=== PATIENT | female | born 1985 | race African-American/Black ===

== ENCOUNTER 2016-05-28 15:26 | Emergency (ER) | payer MEDICARE, OTHER ==
--- NOTE | 2016-05-28 16:34 | ED ---
General Adult HPI - General Chief complaint: Extremity Injury, Lower Stated complaint: L foot pain Time Seen by Provider: 05/28/16 16:16 Source: patient, RN notes reviewed Mode of arrival: ambulatory Limitations: no limitations - History of Present Illness Initial comments: This is a 31-year-old female presents with left foot pain 1 day. Patient states she woke up and took one step on her left foot noticed pain to the top of her left foot. Patient has also noticed some mild swelling and erythema to this area. Patient denies any injury to the foot. Patient denies any numbness/ tingling or weakness. Patient is able to ambulate. Patient denies any recent fever, chills, shortness breath, chest pain, abdominal pain, nausea/vomiting/ diarrhea, back pain, hematuria, headache, or visual changes, or any other complaints. - Related Data Home Medications Medication Instructions Recorded Confirmed Albuterol Inhaler [Ventolin 1 - 2 puff INHALATION Q6HR PRN 07/11/14 05/28/16 Inhaler] Mometasone Inhalr 220 Mcg/Puff 2 puff INHALATION BID 07/11/14 05/28/16 [Asmanex] Cetirizine HCl [Zyrtec] 10 mg PO DAILY 10/11/14 05/28/16 Hydrochlorothiazide 25 mg PO QAM 02/08/15 05/28/16 amLODIPine BES/OLMESARTAN MED 1 tab PO QAM 02/08/15 05/28/16 [Gabby 5-20 mg Tablet] Previous Rx's Medication Instructions Recorded Ibuprofen [Motrin] 600 mg PO Q6HR PRN #30 tab 10/13/14 Allergies Allergy/AdvReac Type Severity Reaction Status Date / Time cephalexin monohydrate Allergy throat Verified 05/28/16 15:39 [From Keflex] swelling codeine Allergy Rash/Hives Verified 05/28/16 15:39 morphine Allergy Rash/Hives Verified 05/28/16 15:39 Sulfa (Sulfonamide Allergy Rash/Hives Verified 05/28/16 15:39 Antibiotics) Review of Systems ROS Statement: Those systems with pertinent positive or pertinent negative responses have been documented in the HPI. ROS Other: All systems not noted in ROS Statement are negative. Past Medical History Past Medical History: Asthma, GERD/Reflux, Hypertension Additional Past Medical History / Comment(s): "stated she had blood thinners after childbirth, she doesn't recall IF she had any kind of blood clot." HX: MIGRAINES. History of Any Multi-Drug Resistant Organisms: None Reported Past Surgical History: Section, Hernia Repair, Tubal Ligation Additional Past Surgical History / Comment(s): D & C x2, c/s x 2. SEPTEMBER 2014 TUBAL LIGATION Past Anesthesia/Blood Transfusion Reactions: Postoperative Nausea & Vomiting ( PONV) Past Psychological History: Bipolar, Depression Additional Psychological History / Comment(s): Takes no meds. states ppd after both of other opregnancies but not seen dr and not on meds at t his time Smoking Status: Never smoker Past Alcohol Use History: Occasional Additional Past Alcohol Use History / Comment(s): None for 9 months Past Drug Use History: None Reported Additional Drug Use History / Comment(s): NOT CURRENTLY. USING - Past Family History Mother Family Medical History: Asthma, Hypertension Father Family Medical History: CVA/TIA, Myocardial Infarction ([place]) General Exam - General Exam Comments Initial Comments: General: The patient is awake and alert, in no distress, and does not appear acutely ill. Neck: The neck is supple, there is no tenderness or JVD. Cardiovascular: There is a regular rate and rhythm. No murmur, rub or gallop is appreciated. Respiratory: Lungs are clear to auscultation, respirations are non-labored, breath sounds are equal. No wheezes, stridor, rales, or rhonchi. Musculoskeletal: There is mild tenderness to palpation over the dorsal aspect of the left foot with mild localized swelling and erythema to this area as well. Capillary refill is normal at less than 2 seconds. Full range of motion , strength 5/5 and Sensation intact. Posterior tibial pulses 2+ bilaterally. No calf tenderness. Neurological: A&O x 3. CN II-XII intact, There are no obvious motor or sensory deficits. Coordination appears grossly intact. Speech is normal. Skin: Mild erythema to the dorsal aspect of the left foot. Skin is warm and dry and no rashes or lesions are noted. Psychiatric: Normal mood and affect. Limitations: no limitations Course Vital Signs 05/28/16 15:37 Temperature 97.9 F Pulse Rate 87 Respiratory 20 Rate Blood Pressure 164/104 O2 Sat by Pulse 97 Oximetry Medical Decision Making - Medical Decision Making This is a 31yo female who presents with left foot pain 1 day. On physical exam there is mild tenderness to palpation over the dorsal aspect of the left foot with mild localized swelling and erythema to this area as well. Capillary refill is normal at less than 2 seconds. Full range of motion, strength 5/5 and Sensation intact. Posterior tibial pulses 2+ bilaterally. Patient is able to ambulate. No calf tenderness. Patient's elevated blood pressure noted, and patient states she is already on blood pressure medication and has not taken her daily dose yet today. Patient is asymptomatic. An x-ray of the left foot was done and reviewed showing: No fracture or dislocation. Osteoarthritic changes. Report read by Dr. Ely Discussed rest, ice, elevate and use Phillip bandage for compression. Patient was given Phillip bandages EC today. Discussed return parameters. All questions were answered. Discussed [id number] Tylenol and Motrin as needed for any pain. Discussed that patient should follow up with PCP in one to 2 days or return to the EC for any worsening symptoms or for any further concerns. Patient was receptive to this plan and patient will be discharged home. Disposition Clinical Impression: Left foot pain Disposition: HOME SELF-CARE Condition: Good Instructions: Foot Sprain (ED) Additional Instructions: Please rest, ice, elevate and use Phillip bandage for compression. Please use over- the-counter Tylenol or Motrin dosing of any pain. Please follow-up with family doctor in the next 2 days of symptoms have not improved. Please return to emergency room if the symptoms increase or worsen or for any other concerns. Referrals: Lashell Ron MD [Primary Care Provider] - 1-2 days Time of Disposition: 16:51
--- NOTE | 2016-05-28 16:48 | XR ---
Left foot HISTORY: Pain and erythema, swelling 3 views of the left foot No comparisons Bone mineralization, joint spaces and alignment are maintained. Some spurring present at the intertar matthew joints, tarsometatarsal joints. IMPRESSION: No fracture or dislocation. Osteoarthritic changes.
[2016-05-28 17:11] VITALS: BP 151/110; PULSE 81; RESP 16; TEMP 98
== END 2016-05-28 17:00 | disposition home or self-care (01) ==
LOC: EC 15:26
DX: M79.672 Pain in left foot (principal); I10 Essential (primary) hypertension; J45.909 Unspecified asthma, uncomplicated; Z79.899 Other long term (current) drug therapy; Z88.1 Allergy status to other antibiotic agents; Z88.5 Allergy status to narcotic agent; Z88.2 Allergy status to sulfonamides; Z79.51 Long term (current) use of inhaled steroids
CPT/HCPCS: 99283

== ENCOUNTER 2016-08-16 19:43 | Emergency (ER) | payer MEDICARE, OTHER ==
[2016-08-16 21:00] VITALS: RESP 18
[2016-08-16] MEDS ORDERED: KETOROLAC 60 MG/2 ML VIAL IM STA (21:59)
[2016-08-16] MEDS ORDERED: PROCHLORPERAZINE 10 MG TAB PO STA (21:59)
[2016-08-16] MEDS ORDERED: Acetaminophen-Codeine 300-30mg TAB PO STA (21:59)
[2016-08-16] MEDS ORDERED: diphenhydrAMINE 50 MG CAP PO STA (21:59)
[2016-08-16] MEDS ORDERED: cloNIDine HCL 0.1 MG TAB PO STA (22:01)
--- NOTE | 2016-08-16 22:02 | ED ---
General Adult HPI - General Chief complaint: Headache Stated complaint: headache,high BP Time Seen by Provider: 08/16/16 21:45 Source: patient, RN notes reviewed, old records reviewed Mode of arrival: ambulatory - History of Present Illness Initial comments: This is a 31-year-old female here for evaluation of headache. Patient history of migraines or chronic migraines. Patient recently with TMJ and blood pressure issues. Patient did see ER visit yesterday for TMJ, was prescribed tramadol that is helping. But migraine since developed. No neurological deficit no fevers no trauma. Patient's been taking [id number] medications as prescribed for her migraines with no help - Related Data Home Medications Medication Instructions Recorded Confirmed Albuterol Inhaler [Ventolin 1 - 2 puff INHALATION RT-Q6H PRN 07/11/14 08/16/16 Inhaler] Mometasone Inhalr 220 Mcg/Puff 2 puff INHALATION RT-BID PRN 07/11/14 08/16/16 [Asmanex] Cetirizine HCl [Zyrtec] 10 mg PO DAILY PRN 10/11/14 08/16/16 Labetalol [Trandate] 100 mg PO BID 08/16/16 08/16/16 traMADol HCL [Ultram] 50 mg PO Q6HR PRN 08/16/16 08/16/16 Previous Rx's Medication Instructions Recorded Ibuprofen [Motrin] 600 mg PO Q6HR PRN #30 tab 10/13/14 Allergies Allergy/AdvReac Type Severity Reaction Status Date / Time cephalexin monohydrate Allergy Anaphylaxis Verified 08/16/16 21:54 [From Keflex] codeine Allergy Rash/Hives Verified 08/16/16 21:54 morphine Allergy Rash/Hives Verified 08/16/16 21:54 Sulfa (Sulfonamide Allergy Rash/Hives Verified 08/16/16 21:54 Antibiotics) Review of Systems ROS Statement: Those systems with pertinent positive or pertinent negative responses have been documented in the HPI. ROS Other: All systems not noted in ROS Statement are negative. Past Medical History Past Medical History: Asthma, GERD/Reflux, Hypertension Additional Past Medical History / Comment(s): HX: MIGRAINES. History of Any Multi-Drug Resistant Organisms: None Reported Past Surgical History: Section, Hernia Repair, Tubal Ligation Additional Past Surgical History / Comment(s): D & C x2, c/s x 2. SEPTEMBER 2014 TUBAL LIGATION Past Anesthesia/Blood Transfusion Reactions: Postoperative Nausea & Vomiting ( PONV) Past Psychological History: Bipolar, Depression Additional Psychological History / Comment(s): Takes no meds. states ppd after both of other opregnancies but not seen dr and not on meds at t his time Smoking Status: Never smoker Past Alcohol Use History: Occasional Additional Past Alcohol Use History / Comment(s): None for 9 months Past Drug Use History: None Reported Additional Drug Use History / Comment(s): NOT CURRENTLY. USING - Past Family History Mother Family Medical History: Asthma, Hypertension Father Family Medical History: CVA/TIA, Myocardial Infarction ([place]) General Exam - General Exam Comments Initial Comments: No focal neurological deficit General appearance: alert, in no apparent distress Head exam: Present: atraumatic, normocephalic, normal inspection Eye exam: Present: normal appearance, PERRL, EOMI. Absent: scleral icterus, conjunctival injection, periorbital swelling ENT exam: Present: normal exam, mucous membranes moist Neck exam: Present: normal inspection. Absent: tenderness, meningismus, lymphadenopathy Respiratory exam: Present: normal lung sounds bilaterally. Absent: respiratory distress, wheezes, rales, rhonchi, stridor Cardiovascular Exam: Present: regular rate, normal rhythm, normal heart sounds. Absent: systolic murmur, diastolic murmur, rubs, gallop, clicks GI/Abdominal exam: Present: soft, normal bowel sounds. Absent: distended, tenderness, guarding, rebound, rigid Extremities exam: Present: normal inspection, full ROM, normal capillary refill. Absent: tenderness, pedal edema, joint swelling, calf tenderness Back exam: Present: normal inspection Neurological exam: Present: alert, oriented X3, CN II-XII intact Psychiatric exam: Present: normal affect, normal mood Skin exam: Present: warm, dry, intact, normal color. Absent: rash Course Vital Signs 08/16/16 20:56 Temperature 98.1 F Pulse Rate 81 Respiratory 18 Rate Blood Pressure 181/11 O2 Sat by Pulse 97 Oximetry - Reevaluation(s) Reevaluation #1: 08/16/16 22:01 Patient's headache at this time is resolved, blood pressure is improved Medical Decision Making - Medical Decision Making 31 female ER for evaluation of headache, chronic migraine, patient is now pain- free, feeling appropriate will be discharged home Disposition Clinical Impression: Migraine, Migraine with acute onset aura Disposition: HOME SELF-CARE Condition: Good Instructions: Acute Headache (ED) Referrals: Lashell Ron MD [Primary Care Provider] - 1-2 days
[2016-08-16 23:24] VITALS: TEMP 98.7
[2016-08-16 23:56] VITALS: BP 162/96; PULSE 63
== END 2016-08-16 23:56 | disposition home or self-care (01) ==
LOC: EC 19:43
DX: G43.109 Migraine with aura, not intractable, without status migrainosus (principal); I10 Essential (primary) hypertension; Z79.899 Other long term (current) drug therapy; Z88.1 Allergy status to other antibiotic agents; Z88.5 Allergy status to narcotic agent; Z88.2 Allergy status to sulfonamides
CPT/HCPCS: 99284; 96372; S0183; J1885

== ENCOUNTER → 2016-09-13 | Outpatient (CLI) | payer MEDICARE, OTHER ==
--- NOTE | 2016-09-13 15:35 | XR ---
EXAM TYPE: LUMBAR SPINE X RAY SERIES COMPARISON: NONE HISTORY: Pain TECHNIQUE: 4 views are submitted. FINDINGS: Alignment is anatomic. The pedicles are intact. The transverse processes are intact. There is no s pondylolysis or spondylolisthesis. Hypertrophic spurs are seen anteriorly at multiple levels. IMPRESSION: 1. Mild hypertrophic changes.
== END | disposition home or self-care (01) ==
LOC: RADXRMAIN 14:56
PROVIDERS: ATTEND Family Medicine
DX: M25.78 Osteophyte, vertebrae (principal); M54.42 Lumbago with sciatica, left side
CPT/HCPCS: 72110

== ENCOUNTER → 2017-01-14 | Outpatient (CLI) | payer MEDICARE, OTHER ==
[2017-01-14 12:24] LABS: Hepatitis B Surface Ag Index 0.08
[2017-01-14 12:30] LABS: Hepatitis B Core IgM Index 0.04
[2017-01-14 12:42] LABS: Hepatitis C Virus IgG Ab Negative (Negative); Hepatitis C Virus IgG Index 0.03
[2017-01-14 15:42] LABS: Treponemal Ab Non-Reactive (Non-Reactive)
== END | disposition home or self-care (01) ==
LOC: LABWHC1 11:12
PROVIDERS: ATTEND Obstetrics & Gynecology
DX: T75.89XA Other specified effects of external causes, initial encounter (principal)
CPT/HCPCS: 36415; 80074; 86780; 87390

== ENCOUNTER 2017-01-21 17:51 | Emergency (ER) | payer MEDICARE, OTHER ==
[2017-01-21 18:01] VITALS: PULSE 73
[2017-01-21] MEDS ORDERED: SODIUM CHLORIDE 0.9% 500 ML IV STA (18:15)
[2017-01-21] MEDS ORDERED: DEXAMETHASONE SOD PHOSPHATE 10 MG/ML 1 ML VIAL IV STA (18:15)
[2017-01-21] MEDS ORDERED: METOCLOPRAMIDE 5 MG/ML 2 ML VIAL IVP STA (18:15)
[2017-01-21] MEDS ORDERED: KETOROLAC 30 MG/ML 1 ML VIAL IVP STA (18:15)
--- NOTE | 2017-01-21 18:37 | ED ---
Headache HPI - General Chief Complaint: Headache Stated Complaint: headache Time Seen by Provider: 01/21/17 18:12 Mode of arrival: ambulatory Limitations: no limitations - History of Present Illness Initial Comments: This 31-year-old female presents with a complaint of a headache. It is been present for the last 3 days and as a dull throbbing type headache on the right side of her head. She has had some phonophobia more than photophobia. She denies any neck pain. It was gradual in onset. It is very consistent with her previous migraine headaches. She has tried some [id number] analgesics without relief. She denies any other complaints or modifying factors. No fevers or chills. - Related Data Home Medications Medication Instructions Recorded Confirmed Albuterol Inhaler [Ventolin 1 - 2 puff INHALATION RT-Q6H PRN 07/11/14 01/21/17 Inhaler] Cetirizine HCl [Zyrtec] 10 mg PO DAILY PRN 10/11/14 01/21/17 Labetalol [Trandate] 100 mg PO BID 08/16/16 01/21/17 Allergies Allergy/AdvReac Type Severity Reaction Status Date / Time cephalexin monohydrate Allergy Anaphylaxis Verified 01/21/17 18:00 [From Keflex] codeine Allergy Rash/Hives Verified 01/21/17 18:00 morphine Allergy Rash/Hives Verified 01/21/17 18:00 Sulfa (Sulfonamide Allergy Rash/Hives Verified 01/21/17 18:00 Antibiotics) Review of Systems ROS Statement: Those systems with pertinent positive or pertinent negative responses have been documented in the HPI. ROS Other: All systems not noted in ROS Statement are negative. Past Medical History Past Medical History: Asthma, GERD/Reflux, Hypertension Additional Past Medical History / Comment(s): HX: MIGRAINES. History of Any Multi-Drug Resistant Organisms: None Reported Past Surgical History: Section, Hernia Repair, Tubal Ligation Additional Past Surgical History / Comment(s): D & C x2, c/s x 2. SEPTEMBER 2014 TUBAL LIGATION Past Anesthesia/Blood Transfusion Reactions: Postoperative Nausea & Vomiting ( PONV) Past Psychological History: Bipolar, Depression Smoking Status: Never smoker Past Alcohol Use History: Occasional Past Drug Use History: None Reported - Past Family History Mother Family Medical History: Asthma, Hypertension Father Family Medical History: CVA/TIA, Myocardial Infarction ([place]) General Exam - General Exam Comments Initial Comments: GENERAL: The patient is well nourished and well hydrated. VITAL SIGNS: Heart rate, blood pressure, respiratory rate reviewed as recorded in nurse's notes. EYES: Pupils are round and reactive. Extraocular movements are intact. No conjunctival / lid redness or swelling. ENT: No external evidence of injury, swelling, or ecchymosis. Airway is patent. Throat is clear. NECK: Nontender. No swelling or evidence of injury. No subcutaneous emphysema. Trachea is midline. No thyroid mass. HEART: Regular rate and rhythm. Good peripheral pulses. LUNGS/CHEST: Breath sounds clear and equal bilaterally. No rales, rhonchi, or wheezes. No ecchymosis, subcutaneous emphysema, or tenderness. ABDOMEN: Abdomen soft without tenderness. No palpable masses or organomegaly. No peritoneal signs. No abdominal wall swelling or ecchymosis. EXTREMITIES: No extremity tenderness. Normal muscle tone and function. No thoracolumbar tenderness. NEUROLOGIC: Sensation is grossly intact. Cranial nerve exam reveals face is symmetrical, tongue is midline, speech is clear. SKIN: No abrasions or ecchymosis is noted. No induration or masses noted. PSYCHIATRIC: Alert and oriented. Appropriate behavior and judgment. Limitations: no limitations Course Vital Signs 01/21/17 17:59 Temperature 99.2 F Pulse Rate 73 Respiratory 20 Rate Blood Pressure 185/105 O2 Sat by Pulse 97 Oximetry Medical Decision Making - Medical Decision Making The patient was seen and examined. She received Decadron, Toradol, and Reglan as well as some IV fluids. She is feeling markedly improved on recheck. It is felt as though she is stable for discharge with close follow-up with her primary physician. Disposition Clinical Impression: Migraine Disposition: HOME SELF-CARE Condition: Good Instructions: Migraine Headache (ED) Referrals: Lashell Ron MD [Primary Care Provider] - 1-2 days Time of Disposition: 19:47
[2017-01-21 19:59] VITALS: BP 158/92; RESP 18; TEMP 97.8
== END 2017-01-21 19:58 | disposition home or self-care (01) ==
LOC: EC 17:51
DX: G43.909 Migraine, unspecified, not intractable, without status migrainosus (principal); I10 Essential (primary) hypertension; Z79.899 Other long term (current) drug therapy; Z88.5 Allergy status to narcotic agent; Z88.2 Allergy status to sulfonamides; Z88.1 Allergy status to other antibiotic agents
CPT/HCPCS: 99283; 96374; 96375 ×2; 96361; J1100; J2765; J1885

== ENCOUNTER → 2017-02-08 | Outpatient (CLI) | payer MEDICARE, OTHER ==
--- NOTE | 2017-02-08 09:35 | MR ---
EXAMINATION TYPE: MR brain wo con DATE OF EXAM: 02/08/2017 8:46 AM. COMPARISON: NONE. HISTORY: Headache Technique: Multiplanar, multiecho imaging of the brain was obtained without intravenous contrast. FINDINGS: There is a 4.2 mm low signal lesion in the posterior pituitary gland. No definite neural h ypophysis is seen. Midline structures are otherwise unremarkable. There is a normal craniocervical ju nction. Echoplanar diffusion imaging is normal. There are normal vascular flow voids. The orbits are unremarkable. There is no evidence of a CP angle mass lesion. There is no focal lesion, mass effect or midline shift identified. I do not see evidence of intracran ial blood. IMPRESSION: 1. NO ACUTE INTRACRANIAL ABNORMALITY. 2. LOW SIGNAL LESION IN THE POSTERIOR PITUITARY. I COULD NOT EXCLUDE A PITUITARY MICROADENOMA. A DEDI CATED MRI OF THE PITUITARY WOULD BE SUGGESTED.
== END | disposition home or self-care (01) ==
LOC: RADMRIMAIN 08:05
PROVIDERS: ATTEND Family Medicine
DX: E23.6 Other disorders of pituitary gland (principal); R51 Headache; Z86.69 Personal history of other diseases of the nervous system and sense organs
CPT/HCPCS: 70551

== ENCOUNTER 2017-04-23 11:38 | Emergency (ER) | payer MEDICARE, OTHER ==
[2017-04-23] MEDS ORDERED: SODIUM CHLORIDE 0.9% 1,000 ML IV STA (12:11)
[2017-04-23 12:37] LABS: Appearance,Urine Clear (Clear); Bacteria,Urine Rare /hpf; Bilirubin,Urine Negative (Negative); Blood,Urine Negative (Negative); Color,Urine Yellow; Glucose,Urine (UA) Negative (Negative); Ketones,Urine Trace (Negative); Leukocyte Esterase,Urine Negative (Negative); Mucus,Urine Many /hpf; Nitrite,Urine Negative (Negative); PH, Urine 6.5 (5.0-8.0); Protein,Urine 1+ (Negative); RBC,Urine 2 /hpf (0-5); Squamous Epithelial Cell,Urine 2 /hpf (0-4); Urobilinogen,Urine <2.0 mg/dL (<2.0); WBC,Urine 1 /hpf (0-5)
--- NOTE | 2017-04-23 12:47 | XR ---
EXAMINATION TYPE: XR KUB DATE OF EXAM: 04/23/2017 COMPARISON: NONE HISTORY: Abdominal pain TECHNIQUE: One view abdominal series FINDINGS: The osseous structures are intact. The bowel gas pattern is nonspecific. Surgical clips in right barry drant. There are air-fluid levels. There is prominent small bowel loops. Evidence of previous surgery in the pelvis are noted. IMPRESSION: 1. Nonspecific abdomen. Scattered air-fluid levels correlate for enteritis or ileus. Partial obstruc tion not excluded.
[2017-04-23 12:52] LABS: Basophils # (A) 0.1 k/uL (0-0.2); Basophils % (A) 1 %; Eosinophils # (A) 0.3 k/uL (0-0.7); Eosinophils % (A) 2 %; HCT 40.5 % (34.0-46.0); HGB 13.2 gm/dL (11.4-16.0); Lymphocytes # (A) 2.2 k/uL (1.0-4.8); Lymphocytes % (A) 18 %; MCH 29.3 pg (25.0-35.0); MCHC 32.5 g/dL (31.0-37.0); Monocytes # (A) 0.6 k/uL (0-1.0); Monocytes % (A) 5 %; Neutrophils % (A) 73 %; Platelet Count 242 k/uL (150-450); RDW 13.6 % (11.5-15.5); WBC 12.3 k/uL (3.8-10.6)
[2017-04-23 13:05] LABS: ALT 26 U/L (9-52); AST 32 U/L (14-36); Albumin 4.6 g/dL (3.5-5.0); Alkaline Phosphatase 71 U/L (38-126); Amylase 65 U/L (30-110); Anion Gap 11 mmol/L; Blood Urea Nitrogen 9 mg/dL (7-17); C Reactive Protein 49.7 mg/L (<10.0); Calcium 9.5 mg/dL (8.4-10.2); Carbon Dioxide 26 mmol/L (22-30); Chloride 105 mmol/L (98-107); Glucose 92 mg/dL (74-99); Lipase 36 U/L (23-300); Sodium 142 mmol/L (137-145); Total Bilirubin 0.8 mg/dL (0.2-1.3); Total Protein 7.9 g/dL (6.3-8.2)
[2017-04-23 13:12] LABS: Potassium 4.9 mmol/L (3.5-5.1)
[2017-04-23] MEDS ORDERED: RX INFO: IV CONTRAST WAS GIVEN 1 EACH MISC MISCELLANE PRN (13:46)
[2017-04-23] MEDS ORDERED: PIPERACILLIN-TAZOBACTAM 3.375 GM in DEXTROSE/WATER 1 50ML.BAG IVPB STA (13:46)
--- NOTE | 2017-04-23 13:55 | ED ---
Abdominal Pain HPI - General Chief Complaint: Abdominal Pain Stated Complaint: Abd Pain Time Seen by Provider: 04/23/17 11:56 Source: patient Mode of arrival: ambulatory Limitations: no limitations - History of Present Illness Initial Comments: 31 years old female has abdominal pain ongoing for last few days, she thought she was constipated and numb she took some laxative but then she threw up denies any fever no chills she is surgical procedure she had a D&C times today she had a 3 she also had a gallbladder surgery as well as hernia repair last menstrual period was 04/10/2017. White count is elevated is 12.3 and she also has a C-reactive protein which is elevated - Related Data Home Medications Medication Instructions Recorded Confirmed Albuterol Inhaler [Ventolin 1 - 2 puff INHALATION RT-Q6H PRN 07/11/14 04/23/17 Inhaler] Cetirizine HCl [Zyrtec] 10 mg PO DAILY PRN 10/11/14 04/23/17 Labetalol [Trandate] 100 mg PO BID 08/16/16 04/23/17 Ergocalciferol (Vitamin D2) 50,000 unit PO SA 04/23/17 04/23/17 [Vitamin D2] Allergies Allergy/AdvReac Type Severity Reaction Status Date / Time cephalexin monohydrate Allergy Anaphylaxis Verified 04/23/17 12:05 [From Keflex] codeine Allergy Rash/Hives Verified 04/23/17 12:05 morphine Allergy Rash/Hives Verified 04/23/17 12:05 Sulfa (Sulfonamide Allergy Rash/Hives Verified 04/23/17 12:05 Antibiotics) Review of Systems ROS Statement: Those systems with pertinent positive or pertinent negative responses have been documented in the HPI. ROS Other: All systems not noted in ROS Statement are negative. Past Medical History Past Medical History: Asthma, GERD/Reflux, Hypertension Additional Past Medical History / Comment(s): HX: MIGRAINES. History of Any Multi-Drug Resistant Organisms: None Reported Past Surgical History: Section, Hernia Repair, Tubal Ligation Additional Past Surgical History / Comment(s): D & C x2, c/s x 2. SEPTEMBER 2014 TUBAL LIGATION Past Anesthesia/Blood Transfusion Reactions: Postoperative Nausea & Vomiting ( PONV) Past Psychological History: Bipolar, Depression Smoking Status: Never smoker Past Alcohol Use History: Occasional Past Drug Use History: None Reported - Past Family History Mother Family Medical History: Asthma, Hypertension Father Family Medical History: CVA/TIA, Myocardial Infarction ([place]) General Exam Limitations: no limitations Course Vital Signs 04/23/17 04/23/17 11:46 14:37 Temperature 97.5 F L 98.6 F Pulse Rate 116 H 75 Respiratory 20 16 Rate Blood Pressure 176/105 157/102 O2 Sat by Pulse 99 99 Oximetry Her blood work was reassessed KUB was reviewed beta hCG is negative C-reactive protein was elevated white count is 4.3 chemistries are normal urinalysis is normal rule out hemorrhoids with the family doctor to rule out any liver pathology Medical Decision Making - Lab Data Result diagrams: 04/23/17 12:33 04/23/17 12:33 Lab Results 04/23/17 04/23/17 04/23/17 Range/Units 12:24 12:24 12:33 WBC (3.8-10.6) k/uL RBC (3.80-5.40) m/uL Hgb (11.4-16.0) gm/dL Hct (34.0-46.0) % MCV (80.0-100.0) fL MCH (25.0-35.0) pg MCHC (31.0-37.0) g/dL RDW (11.5-15.5) % Plt Count (150-450) k/uL Neutrophils % % Lymphocytes % % Monocytes % % Eosinophils % % Basophils % % Neutrophils # (1.3-7.7) k/uL Lymphocytes # (1.0-4.8) k/uL Monocytes # (0-1.0) k/uL Eosinophils # (0-0.7) k/uL Basophils # (0-0.2) k/uL Sodium 142 (137-145) mmol/L Potassium 4.9 (3.5-5.1) mmol/L Chloride 105 (98-107) mmol/L Carbon Dioxide 26 (22-30) mmol/L Anion Gap 11 mmol/L BUN 9 (7-17) mg/dL Creatinine 0.90 (0.52-1.04) mg/dL Est GFR (MDRD) Af Amer >60 (>60 ml/min/1.73 sqM) Est GFR (MDRD) Non-Af >60 (>60 ml/min/1.73 sqM) Glucose 92 (74-99) mg/dL Calcium 9.5 (8.4-10.2) mg/dL Total Bilirubin 0.8 (0.2-1.3) mg/dL AST 32 (14-36) U/L ALT 26 (9-52) U/L Alkaline Phosphatase 71 (38-126) U/L C-Reactive Protein 49.7 H (<10.0) mg/L Total Protein 7.9 (6.3-8.2) g/dL Albumin 4.6 (3.5-5.0) g/dL Amylase 65 (30-110) U/L Lipase 36 (23-300) U/L Urine Color Yellow Urine Appearance Clear (Clear) Urine pH 6.5 (5.0-8.0) Ur Specific [place] 1.020 (1.001-1.035) Urine Protein 1+ H (Negative) Urine Glucose (UA) Negative (Negative) Urine Ketones Trace H (Negative) Urine Blood Negative (Negative) Urine Nitrite Negative (Negative) Urine Bilirubin Negative (Negative) Urine Urobilinogen <2.0 (<2.0) mg/dL Ur Leukocyte Esterase Negative (Negative) Urine RBC 2 (0-5) /hpf Urine WBC 1 (0-5) /hpf Ur Squamous Epith Cells 2 (0-4) /hpf Urine Bacteria Rare H (None) /hpf Urine Mucus Many H (None) /hpf Urine HCG, Qual Not Detected (Not Detectd) 04/23/17 Range/Units 12:33 WBC 12.3 H (3.8-10.6) k/uL RBC 4.50 (3.80-5.40) m/uL Hgb 13.2 (11.4-16.0) gm/dL Hct 40.5 (34.0-46.0) % MCV 90.0 (80.0-100.0) fL MCH 29.3 (25.0-35.0) pg MCHC 32.5 (31.0-37.0) g/dL RDW 13.6 (11.5-15.5) % Plt Count 242 (150-450) k/uL Neutrophils % 73 % Lymphocytes % 18 % Monocytes % 5 % Eosinophils % 2 % Basophils % 1 % Neutrophils # 9.0 H (1.3-7.7) k/uL Lymphocytes # 2.2 (1.0-4.8) k/uL Monocytes # 0.6 (0-1.0) k/uL Eosinophils # 0.3 (0-0.7) k/uL Basophils # 0.1 (0-0.2) k/uL Sodium (137-145) mmol/L Potassium (3.5-5.1) mmol/L Chloride (98-107) mmol/L Carbon Dioxide (22-30) mmol/L Anion Gap mmol/L BUN (7-17) mg/dL Creatinine (0.52-1.04) mg/dL Est GFR (MDRD) Af Amer (>60 ml/min/1.73 sqM) Est GFR (MDRD) Non-Af (>60 ml/min/1.73 sqM) Glucose (74-99) mg/dL Calcium (8.4-10.2) mg/dL Total Bilirubin (0.2-1.3) mg/dL AST (14-36) U/L ALT (9-52) U/L Alkaline Phosphatase (38-126) U/L C-Reactive Protein (<10.0) mg/L Total Protein (6.3-8.2) g/dL Albumin (3.5-5.0) g/dL Amylase (30-110) U/L Lipase (23-300) U/L Urine Color Urine Appearance (Clear) Urine pH (5.0-8.0) Ur Specific [place] (1.001-1.035) Urine Protein (Negative) Urine Glucose (UA) (Negative) Urine Ketones (Negative) Urine Blood (Negative) Urine Nitrite (Negative) Urine Bilirubin (Negative) Urine Urobilinogen (<2.0) mg/dL Ur Leukocyte Esterase (Negative) Urine RBC (0-5) /hpf Urine WBC (0-5) /hpf Ur Squamous Epith Cells (0-4) /hpf Urine Bacteria (None) /hpf Urine Mucus (None) /hpf Urine HCG, Qual (Not Detectd) Disposition Clinical Impression: Abdominal pain, Fatty infiltration of liver Disposition: HOME SELF-CARE Condition: Good Instructions: Abdominal Pain (ED) Additional Instructions: Based on the CT findings on the liver patient is advised follow-up with her family doctor and get to a MRI of the liver arranged as outpatient to rule out any liver mass she agrees with the otherwise CT abdomen to rule out any bowel obstruction or any other acute pathology Referrals: Lashell Ron MD [Primary Care Provider] - 1-2 days
[2017-04-23 14:39] VITALS: RESP 16
--- NOTE | 2017-04-23 15:37 | CT ---
EXAMINATION TYPE: CT abdomen pelvis w con DATE OF EXAM: 04/23/2017 HISTORY: Patient complains of RUQ/epigastric pain, nausea, vomiting and extreme full feeling when eat ing. CT DLP: 1734mGycm Automated Exposure Control for Dose Reduction was Utilized. CONTRAST: CT scan of the abdomen and pelvis is performed with oral but with IV Contrast, patient injected with 100 mL of Omnipaque 300. COMPARISON: None. FINDINGS: LUNG BASES: No significant abnormality is appreciated. LIVER/GB: Cholecystectomy clips are present. Liver is heterogeneous. Vague hypodense area anteriorly left hepatic lobe near image 26 series 3 measures 4.5 x 1.9 cm favors fatty infiltration, focal lesio n at this level is not excluded. Consider nonemergent follow-up. PANCREAS: No significant abnormality is seen. SPLEEN: Spleen is upper limits of normal in size on axial image 16 measuring 12.8 cm ADRENALS: No significant abnormality is seen. KIDNEYS: No significant abnormality is seen. BOWEL: Evaluation bowel is suboptimal secondary to lack of enteric contrast. There is slightly wonder ing cecum seen in the anterior right mid abdomen best near coronal image 22. Terminal ileum is identi fied at this level. Appendix extends right lateral aspect from this and appears normal in size. UTERUS/ADNEXA: Uterus is anteverted in shape and markedly heterogeneous in appearance. Small to tiny amount of free fluid in pelvic cul-de-sac is suspected to right of midline near axial image 76 extend ing superiorly to axial image 67. There are tubal ligation clips along the periphery of the uterine f undus. There is additional surgical clip in the left pelvis possibly displaced cholecystectomy clips. Some scattered pelvic phleboliths are present. LYMPH NODES: Evaluation for adenopathy is suboptimal due anterior to aorta and aortocaval region like ly reflecting duodenal crossover. Soft tissue density left periaortic level is suspicious near level of renal vein particularly axial image 27 but this appears contiguous with small bowel loop presumed jejunal loop on coronal images and sagittal images. No definitive greater than 1 cm lymph nodes are s een. OSSEOUS STRUCTURES: No significant abnormality is seen. OTHER: No significant additional abnormality is seen. IMPRESSION: Suboptimal study, no bowel obstruction is seen. Small to tiny amount of free fluid in pel lesa cul-de-sac is noted. No significant acute finding is present to account for patient's symptoms. N onspecific anterior liver area over lesion favors focal fatty infiltration, underlying mass is not ex cluded. Nonemergent liver protocol contrast-enhanced MRI follow-up is advised.
[2017-04-23 16:10] VITALS: BP 151/104; PULSE 93; TEMP 97.7
== END 2017-04-23 17:58 | disposition home or self-care (01) ==
LOC: EC 11:38
DX: K76.0 Fatty (change of) liver, not elsewhere classified (principal); I10 Essential (primary) hypertension; Z98.890 Other specified postprocedural states; Z32.02 Encounter for pregnancy test, result negative; Z88.1 Allergy status to other antibiotic agents; Z88.5 Allergy status to narcotic agent; Z88.2 Allergy status to sulfonamides; Z79.899 Other long term (current) drug therapy
CPT/HCPCS: 99284; 96365; 96366 ×2; 36415; 80053; 82150; 83690; 85025; 86140; 81001; 81025; 74000; 74177; J2543; Q9967

== ENCOUNTER → 2017-05-28 | Outpatient (CLI) | payer MEDICARE, OTHER ==
--- NOTE | 2017-05-28 11:18 | MR ---
MRI liver with and without contrast HISTORY: Abnormal CT scan of the liver, liver lesion, K 76.9 Multiplanar multisequence and postcontrast images through the liver following 11.5 cc Gadavist IV Correlation to CT abdomen pelvis 04/23/2017 The lesion identified within the left lobe of the liver inferiorly is not seen on T1 or T2-weighted s equences. Postcontrast images show decreased signal in this distribution however which becomes isoint ense on delayed images. There is no evident adrenal mass. Patient is post cholecystectomy. No pleural effusion, ascites, or r etroperitoneal adenopathy. The pancreas and spleen are unremarkable. Kidneys are unremarkable. [place] h and bowel is normal as seen. Aorta shows normal diameter. Portal vein shows normal enhancement, hep atic veins are patent. Celiac axis, superior mesenteric artery are patent. IMPRESSION: No evident liver mass. Findings likely correspond to transient hepatic attenuation differ ence. Follow-up could be performed to assess for stability.
== END | disposition home or self-care (01) ==
LOC: RADMRIMAIN 09:37
PROVIDERS: ATTEND Family Medicine
DX: R19.8 Other specified symptoms and signs involving the digestive system and abdomen (principal); K76.9 Liver disease, unspecified
CPT/HCPCS: 74183; A9581

== ENCOUNTER → 2017-06-10 | Outpatient (CLI) | payer MEDICARE, OTHER ==
[2017-06-10 14:49] LABS: Blood Urea Nitrogen 14 mg/dL (7-17)
== END | disposition home or self-care (01) ==
LOC: LABWHC1 13:57
PROVIDERS: ATTEND Family Medicine
DX: R90.89 Other abnormal findings on diagnostic imaging of central nervous system (principal)
CPT/HCPCS: 36415; 82565; 84520

== ENCOUNTER → 2017-06-11 | Outpatient (CLI) | payer MEDICARE, OTHER ==
--- NOTE | 2017-06-11 13:38 | MR ---
EXAMINATION TYPE: MR pituitary wo/w con DATE OF EXAM: 06/11/2017 COMPARISON: Prior brain MR 02/08/2017 HISTORY: Abnormal brain MRI, esteves and vomiting TECHNIQUE: Multiplanar, multisequence images of the brain and brainstem is performed without and with IV contras t, utilizing 11 mL intravenous Gadavist . FINDINGS: The pituitary shows a normal appearance, no abnormal enhancement. Deviation of the infundib ulum does not appear pathologic. Normal vascular flow voids are present. Visualized paranasal sinuses are remarkable for possible polyp disease within the left maxillary sinus, there may be mucus retent ion cysts, chronic mucoperiosteal thickening bilaterally. The corpus callosum is normal. Cervical medullary junction is stable, minimal inferior cerebellar ton sillar ectopia noted. IMPRESSION: Normal pre and postcontrast pituitary. Additional findings above.
== END | disposition home or self-care (01) ==
LOC: RADMRIMAIN 09:35
PROVIDERS: ATTEND Family Medicine
DX: R90.89 Other abnormal findings on diagnostic imaging of central nervous system (principal)
CPT/HCPCS: 70553; A9581

== ENCOUNTER → 2017-10-28 | Outpatient (CLI) | payer MEDICARE, OTHER ==
--- NOTE | 2017-10-28 16:13 | CONS ---
CONSULTATION REASON FOR CONSULTATION: Sleep apnea. This patient was suspected of have obstructive sleep apnea. She snores and her sleep is fragmented. She is waking up also with headaches during the day. She has excessive tiredness and fatigue and sleepiness, and for that reason the patient was referred to me for further investigation. She has gained around 70 to 80 pounds over the past 10 years. She has a strong family history, as her mother, father and son were diagnosed having obstructive sleep apnea. Her son underwent a tonsillectomy and he is doing much better. The patient reports going to bed around 11 p.m., wakes up at 6 a.m. in the morning. 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 She has no other complaints otherwise. PAST MEDICAL HISTORY: 1. Hypertension. 2. Hyperlipidemia. 3. Allergic rhinitis. SURGICAL HISTORY: 1. Three C-sections. 2. Cholecystectomy. 3. Tubal ligation. 4. Hernia repair. 5. D&C. DRUG ALLERGIES: 1. MORPHINE. 2. CEPHALOSPORINS. OUTPATIENT MEDICATION LIST: 1. Atorvastatin. 2. Zyrtec. 3. Labetalol. SOCIAL HISTORY: Nonsmoker. No history of alcoholism. No history of IV drugs. FAMILY HISTORY: Positive for sleep apnea. REVIEW OF SYSTEMS: Twelve-point review of systems was done and the positive findings are all mentioned above in the history of present illness. PHYSICAL EXAMINATION: BP is 150/96, pulse 60, respirations 16, temperature 97.4, saturation 96% on room air. Weight is 247. Height is 5 feet 8 inches, BMI 37.0. Lincoln score is 7. Neck size is 15-1/4 inches. GENERAL APPEARANCE: Calm, comfortable. Head is atraumatic, normocephalic. NECK: Mallampati class 4. No goiter or neck masses. Slight overbite. LUNGS: Clear to auscultation. HEART: Sounds regular rate and rhythm. Normal S1, S2. No S3, S4. No murmurs. ABDOMEN: Soft, nontender. No organomegaly. EXTREMITIES: No edema. No cyanosis or clubbing. NEUROLOGIC: Alert and oriented x3. There is no focal neurological deficit. PSYCHIATRIC: Negative for anxiety or depression. IMPRESSION: 1. Obstructive sleep apnea suspected clinically, under investigation. 2. Obesity with interval weight gain. Current BMI is 37. 3. Hypersomnia. Lincoln score of 7. 4. Hypertension. 5. Hyperlipidemia. 6. Environmental allergies. 7. Positive family history of obstructive sleep apnea. PLAN: 1. Encourage weight loss. 2. Implement good sleep hygiene measures. 3. Home sleep study, looking for any significant sleep apnea that needs to be further investigated and treated. JONEL / EVANGELINA: [id number] /
== END | disposition home or self-care (01) ==
LOC: SLEEP 14:01
PROVIDERS: ATTEND Internal Medicine Critical Care Medicine
DX: G47.10 Hypersomnia, unspecified (principal); I10 Essential (primary) hypertension; E78.5 Hyperlipidemia, unspecified; E66.9 Obesity, unspecified; Z68.37 Body mass index [BMI] 37.0-37.9, adult; Z91.09 Other allergy status, other than to drugs and biological substances; Z84.89 Family history of other specified conditions; Z79.899 Other long term (current) drug therapy; Z88.5 Allergy status to narcotic agent; Z88.1 Allergy status to other antibiotic agents
CPT/HCPCS: 99211

== ENCOUNTER → 2018-09-02 | Outpatient (CLI) | payer MEDICARE, OTHER ==
--- NOTE | 2018-09-03 18:23 | MR ---
EXAMINATION TYPE: MR liver wo/w con DATE OF EXAM: 09/02/2018 COMPARISON: MRI 05/28/[address] 04/23/2017 HISTORY: 33-year-old female Liver lesion Technique: Multiplanar, multisequence images of the abdomen were obtained before and after administra tion of 11.5 mL intravenous Gadavist gadolinium contrast. FINDINGS: Heart appears upper limits of normal in size. No pericardial or pleural effusion. Liver mildly enlarged at 19.2 cm, unchanged. No significant signal loss on opposed phase T1-weighted sequences to suggest any significant fatty infiltration. No T2 hyperintense lesion within the liver. There is a stable ovoid area of hypoenhancement along the anterior falciform ligament that equilibrates on the later phase of imaging. This area is overall st able to slightly smaller measuring 2.3 cm versus 2.6 cm, previously. Gallbladder surgically absent. Bile duct normal caliber at 5 mm. Portal venous system is patent. Adrenal glands, kidneys, spleen, and pancreas appear within normal limits. No gross bowel abnormality. No upper abdominal lymphadenopathy or ascites fluid. IMPRESSION: Relative area of hypoenhancement along the anterior falciform ligament measuring 2.3 cm that equilibr ates on the later phase of imaging. This is overall stable to slightly smaller and shows no T2 weight ed signal abnormality or suspicious washout. Along with its peripheral location, an area of parenchym al perfusion variation is suggested. Stability for over a year is most compatible with a benign etiol ogy.
== END | disposition home or self-care (01) ==
LOC: RADMRIMAIN 08:48
PROVIDERS: ATTEND Family Medicine
DX: R93.2 Abnormal findings on diagnostic imaging of liver and biliary tract (principal)
CPT/HCPCS: 74183; A9585

== ENCOUNTER 2019-01-09 12:13 | Emergency (ER) | payer MEDICARE, OTHER ==
[2019-01-09] MEDS ORDERED: SODIUM CHLORIDE 0.9% 1,000 ML IV STA ×2 (12:55)
[2019-01-09] MEDS ORDERED: diphenhydrAMINE 50 MG/ML 1 ML VIAL IVP STA (12:56)
[2019-01-09] MEDS ORDERED: KETOROLAC 30 MG/ML 1 ML VIAL IVP STA (12:56)
[2019-01-09] MEDS ORDERED: PROMETHAZINE INJ 25 MG in SODIUM CHLORIDE 0.9% 50 ML IVPB STA (12:58)
[2019-01-09 13:01] VITALS: RESP 16
--- NOTE | 2019-01-09 13:01 | ED ---
Headache HPI - General Chief Complaint: Headache Stated Complaint: headache, elevated BP Time Seen by Provider: 01/09/19 12:34 Source: patient, RN notes reviewed, old records reviewed Mode of arrival: ambulatory Limitations: no limitations - History of Present Illness Initial Comments: This is a 33-year-old female with a history of migraine headaches who states she was seen at a local outpatient clinic and referred here for further evaluation she states she had the onset of a headache yesterday which encompasses her whole head nausea is frontal she states her blood pressure was elevated when seen at the outpatient clinic. It was 167/94 later 162/112. No focal loss of vision or use of her extremities. Pain is 7/10 severity feels like someone is hitting her in the head she states is not as other headache she's had in the past. She has any fevers chills nausea vomiting sweats or other symptoms or modifying factors at this time. She does have hypertension and is on medication. MD Complaint: headache, "migraine", other - Related Data Home Medications Medication Instructions Recorded Confirmed Labetalol [Trandate] 200 mg PO QAM 08/16/16 01/09/19 Atorvastatin [Lipitor] 10 mg PO HS 01/09/19 01/09/19 Labetalol HCl 100 mg PO HS 01/09/19 01/09/19 Loratadine [Claritin] 10 mg PO DAILY PRN 01/09/19 01/09/19 Allergies Allergy/AdvReac Type Severity Reaction Status Date / Time cephalexin monohydrate Allergy Anaphylaxis Verified 01/09/19 13:02 [From Keflex] codeine Allergy Rash/Hives Verified 01/09/19 13:02 morphine Allergy Rash/Hives Verified 01/09/19 13:02 Sulfa (Sulfonamide Allergy Rash/Hives Verified 01/09/19 13:02 Antibiotics) Review of Systems ROS Statement: Those systems with pertinent positive or pertinent negative responses have been documented in the HPI. ROS Other: All systems not noted in ROS Statement are negative. Past Medical History Past Medical History: Asthma, GERD/Reflux, Hypertension Additional Past Medical History / Comment(s): HX: MIGRAINES. History of Any Multi-Drug Resistant Organisms: None Reported Past Surgical History: Section, Cholecystectomy, Hernia Repair, Tubal Ligation Additional Past Surgical History / Comment(s): D & C x2, c/s x 2. SEPTEMBER 2014 TUBAL LIGATION Past Anesthesia/Blood Transfusion Reactions: Postoperative Nausea & Vomiting (PONV) Past Psychological History: Bipolar, Depression Smoking Status: Never smoker Past Alcohol Use History: Occasional Past Drug Use History: None Reported - Past Family History Mother Family Medical History: Asthma, Hypertension Father Family Medical History: CVA/TIA, Myocardial Infarction ([place]) General Exam - General Exam Comments Initial Comments: This is a well-developed well-nourished awake alert oriented 3 female Limitations: no limitations General appearance: alert, anxious Head exam: Present: atraumatic, normocephalic, normal inspection Eye exam: Present: normal appearance, PERRL, EOMI. Absent: scleral icterus, conjunctival injection, periorbital swelling ENT exam: Present: normal exam, mucous membranes dry Neck exam: Present: normal inspection, full ROM, other (No stridor JVD or bruits). Absent: tenderness, meningismus, lymphadenopathy Respiratory exam: Present: normal lung sounds bilaterally. Absent: respiratory distress, wheezes, rales, rhonchi, stridor Cardiovascular Exam: Present: regular rate, normal rhythm, normal heart sounds. Absent: systolic murmur, diastolic murmur, rubs, gallop, clicks GI/Abdominal exam: Present: soft, normal bowel sounds. Absent: distended, tenderness, guarding, rebound, rigid Extremities exam: Present: normal inspection, full ROM, normal capillary refill. Absent: tenderness, pedal edema, joint swelling, calf tenderness Back exam: Present: normal inspection Neurological exam: Present: alert, oriented X3, CN II-XII intact Psychiatric exam: Present: normal affect, normal mood Skin exam: Present: warm, dry, intact, normal color. Absent: rash Course Vital Signs 01/09/19 01/09/19 01/09/19 12:26 12:52 14:59 Temperature 97.8 F Pulse Rate 69 67 76 Respiratory 18 16 16 Rate Blood Pressure 163/122 170/123 166/118 O2 Sat by Pulse 100 97 98 Oximetry - Reevaluation(s) Reevaluation #1: 01/09/19 13:02 I did review the materials faxed to this facility by [facility]. Medical Decision Making - Medical Decision Making Patient initially improved this time I did discuss the findings with her she'll be discharged - Lab Data Result diagrams: 01/09/19 13:25 08/24/19 13:25 Lab Results 01/09/19 01/09/19 01/09/19 Range/Units 13:25 13:25 13:25 WBC 7.2 (3.8-10.6) k/uL RBC 4.56 (3.80-5.40) m/uL Hgb 13.3 (11.4-16.0) gm/dL Hct 40.5 (34.0-46.0) % MCV 88.9 (80.0-100.0) fL MCH 29.2 (25.0-35.0) pg MCHC 32.9 (31.0-37.0) g/dL RDW 12.6 (11.5-15.5) % Plt Count 245 (150-450) k/uL Neutrophils % 55 % Lymphocytes % 32 % Monocytes % 4 % Eosinophils % 6 % Basophils % 1 % Neutrophils # 4.0 (1.3-7.7) k/uL Lymphocytes # 2.3 (1.0-4.8) k/uL Monocytes # 0.3 (0-1.0) k/uL Eosinophils # 0.4 (0-0.7) k/uL Basophils # 0.1 (0-0.2) k/uL Sodium 140 (137-145) mmol/L Potassium 4.4 (3.5-5.1) mmol/L Chloride 104 (98-107) mmol/L Carbon Dioxide 25 (22-30) mmol/L Anion Gap 11 mmol/L BUN 10 (7-17) mg/dL Creatinine 0.77 (0.52-1.04) mg/dL Est GFR (CKD-EPI)AfAm >90 (>60 ml/min/1.73 sqM) Est GFR (CKD-EPI)NonAf >90 (>60 ml/min/1.73 sqM) Glucose 86 (74-99) mg/dL Calcium 9.9 (8.4-10.2) mg/dL Total Bilirubin 0.3 (0.2-1.3) mg/dL AST 19 (14-36) U/L ALT 17 (9-52) U/L Alkaline Phosphatase 54 (38-126) U/L Creatine Kinase 117 (30-135) U/L Troponin I <0.012 (0.000-0.034) ng/mL Total Protein 7.5 (6.3-8.2) g/dL Albumin 4.5 (3.5-5.0) g/dL Disposition Clinical Impression: Migraine, Hypertension Disposition: HOME SELF-CARE Condition: Good Instructions (If sedation given, give patient instructions): Acute Headache (ED), Hypertension (ED) Is patient prescribed a controlled substance at d/c from ED?: No Referrals: Lashell Ron MD [Primary Care Provider] - 1-2 days
[2019-01-09 13:41] LABS: Basophils # (A) 0.1 k/uL (0-0.2); Basophils % (A) 1 %; Eosinophils # (A) 0.4 k/uL (0-0.7); Eosinophils % (A) 6 %; HCT 40.5 % (34.0-46.0); HGB 13.3 gm/dL (11.4-16.0); Lymphocytes # (A) 2.3 k/uL (1.0-4.8); Lymphocytes % (A) 32 %; MCH 29.2 pg (25.0-35.0); MCHC 32.9 g/dL (31.0-37.0); MCV 88.9 fL (80.0-100.0); Mean Platelet Volume 7.8; Monocytes # (A) 0.3 k/uL (0-1.0); Monocytes % (A) 4 %; Neutrophils % (A) 55 %; Platelet Count 245 k/uL (150-450); RBC 4.56 m/uL (3.80-5.40); RDW 12.6 % (11.5-15.5); WBC 7.2 k/uL (3.8-10.6)
[2019-01-09 13:53] LABS: ALT 17 U/L (9-52); AST 19 U/L (14-36); African American GFR (CKD) >90 (>60 ml/min/1.73 sqM); Albumin 4.5 g/dL (3.5-5.0); Alkaline Phosphatase 54 U/L (38-126); Anion Gap 11 mmol/L; Blood Urea Nitrogen 10 mg/dL (7-17); Calcium 9.9 mg/dL (8.4-10.2); Carbon Dioxide 25 mmol/L (22-30); Chloride 104 mmol/L (98-107); Creatine Kinase 117 U/L (30-135); Glucose 86 mg/dL (74-99); Non-African American GFR(CKD) >90 (>60 ml/min/1.73 sqM); Potassium 4.4 mmol/L (3.5-5.1); Sodium 140 mmol/L (137-145); Total Bilirubin 0.3 mg/dL (0.2-1.3); Total Protein 7.5 g/dL (6.3-8.2)
[2019-01-09] MEDS ORDERED: LABETALOL 5 MG/ML VIAL MDV IVP STA (14:43)
[2019-01-09 16:47] VITALS: BP 160/101; PULSE 88; TEMP 98.3
== END 2019-01-09 16:50 | disposition home or self-care (01) ==
LOC: EC 12:13
DX: G43.909 Migraine, unspecified, not intractable, without status migrainosus (principal); I10 Essential (primary) hypertension; Z79.899 Other long term (current) drug therapy; Z88.1 Allergy status to other antibiotic agents; Z88.2 Allergy status to sulfonamides; Z88.5 Allergy status to narcotic agent
CPT/HCPCS: 36415; 93005; 80053; 82550; 84484; 85025; 99284; 96374; 96375 ×2; 96361 ×3; J2550; J1885

== ENCOUNTER 2019-04-22 08:24 | Day surgery (SDC) | payer MEDICARE, OTHER ==
[2019-04-21 09:36] VITALS: BMI 32.1
[~2019-04-22 08:24] MED LIST: LACTATED RINGERS 1,000 ML IV SCH
[2019-04-22 08:55] VITALS: RESP 16; TEMP 97.8
[2019-04-22] MEDS ORDERED: fentaNYL (PF) 50 MCG/ML 2 ML AMP ONE (09:21)
[2019-04-22] MEDS ORDERED: LIDOCAINE 1% INJ 10MG/ML (20 ML MDV) ONE (09:21)
[2019-04-22] MEDS ORDERED: MIDAZOLAM 2 MG/2 ML VIAL ONE (09:21)
[2019-04-22] MEDS ORDERED: PROPOFOL 10 MG/ML 20 ML VIAL IV ONE (09:21)
--- NOTE | 2019-04-22 09:26 | P.GSHP ---
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 Patient safer EGD tonight for gastritis. Past Medical History Past Medical History: Asthma, GERD/Reflux, Hypertension Additional Past Medical History / Comment(s): HX: MIGRAINES. History of Any Multi-Drug Resistant Organisms: None Reported Past Surgical History: Section, Cholecystectomy, Hernia Repair, Tubal Ligation Additional Past Surgical History / Comment(s): D & C x2, c/s x 3. SEPTEMBER 2014 TUBAL LIGATION Past Anesthesia/Blood Transfusion Reactions: Postoperative Nausea & Vomiting (PONV) Smoking Status: Never smoker - Past Family History Mother Family Medical History: Asthma, Hypertension Father Family Medical History: CVA/TIA, Myocardial Infarction ([place]) Medications and Allergies Home Medications Medication Instructions Recorded Confirmed Type Labetalol [Trandate] 200 mg PO BID 08/16/16 04/22/19 History Atorvastatin [Lipitor] 10 mg PO HS 01/09/19 04/22/19 History Loratadine [Claritin] 10 mg PO DAILY PRN 01/09/19 04/22/19 History Hydrochlorothiazide [Hydrodiuril] 25 mg PO DAILY 04/21/19 04/22/19 History Allergies Allergy/AdvReac Type Severity Reaction Status Date / Time cephalexin monohydrate Allergy Anaphylaxis Verified 04/22/19 08:49 [From Keflex] codeine Allergy Rash/Hives Verified 04/22/19 08:49 morphine Allergy Rash/Hives Verified 04/22/19 08:49 Sulfa (Sulfonamide Allergy Rash/Hives Verified 04/22/19 08:49 Antibiotics) Surgical - Exam Vital Signs Temp Pulse Resp BP Pulse Ox 97.8 F 73 16 146/95 97 04/22/19 08:52 04/22/19 08:52 04/22/19 08:52 04/22/19 08:52 04/22/19 08:52 - General well developed, well nourished, no distress - Eyes PERRL - ENT normal pinna - Neck no masses - Respiratory normal expansion - Cardiovascular Rhythm: regular - Abdomen Abdomen: soft, non tender Assessment and Plan Assessment: Gastritis. We'll perform EGD.
--- NOTE | 2019-04-22 09:32 | P.OP ---
Date of Procedure: 04/22/19 Preoperative Diagnosis: Epigastric dull pain Postoperative Diagnosis: Mild antral gastritis Procedure(s) Performed: EGD Anesthesia: MAC Surgeon: Hubert Peguero Pathology: other (Antrum) Condition: stable Disposition: PACU Description of Procedure: The patient's placed on the endoscopy table in the lateral position. She received IV sedation. The gastric was placed oropharynx passed in the esophagus and stomach. Scope was then placed through the pylorus. The first and second portion of duodenum appeared normal. Scope was then brought back the antrum and this appeared mildly inflamed. A biopsies performed. The scope was unretroflexed and remainder some appeared normal. There is no significant hiatal hernia. The GE junction was at 40 cm. The distal esophagus appeared mildly inflamed. A biopsies performed. The proximal esophagus AppearedNormal. Scope withdrawn for patient.
[2019-04-22 09:50] VITALS: BP 144/94; PULSE 63
== END 2019-04-22 10:05 | disposition home or self-care (01) ==
LOC: ORWHC2ENDO 08:24
PROVIDERS: ATTEND Surgery
DX: K29.50 Unspecified chronic gastritis without bleeding (principal); K21.0 Gastro-esophageal reflux disease with esophagitis; I10 Essential (primary) hypertension; J45.909 Unspecified asthma, uncomplicated; G43.909 Migraine, unspecified, not intractable, without status migrainosus; Z90.49 Acquired absence of other specified parts of digestive tract; Z98.51 Tubal ligation status; Z82.5 Family history of asthma and other chronic lower respiratory diseases; Z82.49 Family history of ischemic heart disease and other diseases of the circulatory system; Z79.899 Other long term (current) drug therapy; Z88.1 Allergy status to other antibiotic agents; Z88.2 Allergy status to sulfonamides; Z88.5 Allergy status to narcotic agent
CPT/HCPCS: 81025; 88305; 43239; J2250; J2001; J3010; J2704

== ENCOUNTER → 2019-04-23 | Outpatient (CLI) | payer MEDICARE, OTHER ==
--- NOTE | 2019-04-23 11:02 | US ---
EXAMINATION TYPE: US transvaginal DATE OF EXAM: 04/23/2019 COMPARISON: NONE CLINICAL HISTORY: N92.1 Metrorrhagia. Pelvic cramping, worse with menses. History of 3 c-sections, 3 D & C's and tubal ligation TECHNIQUE: Transvaginal (TV). Date of LMP: 04/02/19 EXAM MEASUREMENTS: Uterus: 9.2 x 4.5 x 4.8 cm Endometrial Stripe: 1.1 cm Right Ovary: 2.9 x 2.3 x 2.2 cm Left Ovary: 2.4 x 1.5 x 1.5 cm 1. Uterus: Anteverted 2. Endometrium: wnl 3. Right Ovary: appears wnl 4. Left Ovary: appears wnl 5. Bilateral Adnexa: wnl 6. Posterior cul-de-sac: Small amount of simple appearing free fluid IMPRESSION: Small amount of simple appearing free fluid, likely physiologic in nature. Otherwise unre markable pelvic ultrasound.
== END | disposition home or self-care (01) ==
LOC: RADUSWWP 09:58
PROVIDERS: ATTEND Obstetrics & Gynecology
DX: N92.1 Excessive and frequent menstruation with irregular cycle (principal)
CPT/HCPCS: 76830

== ENCOUNTER 2019-05-24 16:55 | Emergency (ER) | payer MEDICARE, OTHER ==
[2019-05-24] MEDS ORDERED: SODIUM CHLORIDE 0.9% 1,000 ML IV STA (18:00)
[2019-05-24] MEDS ORDERED: ONDANSETRON 4 MG/2 ML VIAL IVP STA (18:00)
[2019-05-24] MEDS ORDERED: FAMOTIDINE 20 MG/2 ML VIAL IV STA (18:02)
--- NOTE | 2019-05-24 18:05 | ED ---
Nausea/Vomiting/Diarrhea HPI - General Chief complaint: Nausea/Vomiting/Diarrhea Stated complaint: vomiting, congestion Time Seen by Provider: 05/24/19 17:55 Source: patient Mode of arrival: ambulatory Limitations: no limitations - History of Present Illness Initial comments: 34 year-old female patient presents to the emergency department today for evalu ation of nausea and vomiting. Patient states around 1630 this afternoon she developed some nausea while riding the bus. Patient states that she had to get off the bus and did have a vomiting episode. States that she started feeling better, but then the vomiting and nausea persisted. Patient states that she has been having problems with intermittent nausea for the last few months. States she does have Zofran at home but it doesn't seem to help. She denies any abdominal pain with this. Denies fever or chills. Denies chance of . Denies any recent travel or sick contacts. Denies any new medications. Denies any chest pain or shortness of breath with these episodes. Patient denies any recent rash, diarrhea, constipation, back pain, numbness, tingling, dizziness, weakness, hematuria, dysuria, urinary urgency, urinary frequency, headache, visual changes, or any other complaints. - Related Data Home Medications Medication Instructions Recorded Confirmed Labetalol [Trandate] 200 mg PO BID 08/16/16 04/22/19 Atorvastatin [Lipitor] 10 mg PO HS 01/09/19 04/22/19 Loratadine [Claritin] 10 mg PO DAILY PRN 01/09/19 04/22/19 Hydrochlorothiazide [Hydrodiuril] 25 mg PO DAILY 04/21/19 04/22/19 Previous Rx's Medication Instructions Recorded Metoclopramide [Reglan] 10 mg PO Q8H PRN #30 tab 05/24/19 Allergies Allergy/AdvReac Type Severity Reaction Status Date / Time cephalexin monohydrate Allergy Anaphylaxis Verified 05/24/19 17:19 [From Keflex] codeine Allergy Rash/Hives Verified 05/24/19 17:19 morphine Allergy Rash/Hives Verified 05/24/19 17:19 Sulfa (Sulfonamide Allergy Rash/Hives Verified 05/24/19 17:19 Antibiotics) Review of Systems ROS Statement: Those systems with pertinent positive or pertinent negative responses have been documented in the HPI. ROS Other: All systems not noted in ROS Statement are negative. Past Medical History Past Medical History: Asthma, GERD/Reflux, Hypertension Additional Past Medical History / Comment(s): HX: MIGRAINES. History of Any Multi-Drug Resistant Organisms: None Reported Past Surgical History: Section, Cholecystectomy, Hernia Repair, Tubal Ligation Additional Past Surgical History / Comment(s): D & C x2, c/s x 3. SEPTEMBER 2014 TUBAL LIGATION Past Anesthesia/Blood Transfusion Reactions: Postoperative Nausea & Vomiting (PONV) Past Psychological History: Bipolar, Depression Smoking Status: Never smoker Past Alcohol Use History: None Reported Past Drug Use History: None Reported - Past Family History Mother Family Medical History: Asthma, Hypertension Father Family Medical History: CVA/TIA, Myocardial Infarction ([place]) General Exam Limitations: no limitations General appearance: alert, in no apparent distress, other (Physical well- developed, well-nourished adult female patient in no acute distress. Vital signs upon presentation are temperature 98.1F, pulse 81, respirations 16, blood pressure 156/118, pulse ox 98% on room air) Eye exam: Present: normal appearance, PERRL, EOMI. Absent: scleral icterus, conjunctival injection, periorbital swelling ENT exam: Present: normal exam, normal oropharynx, mucous membranes moist Neck exam: Present: normal inspection. Absent: tenderness, meningismus, lymphadenopathy Respiratory exam: Present: normal lung sounds bilaterally. Absent: respiratory distress, wheezes, rales, rhonchi, stridor Cardiovascular Exam: Present: regular rate, normal rhythm, normal heart sounds. Absent: systolic murmur, diastolic murmur, rubs, gallop, clicks GI/Abdominal exam: Present: soft, normal bowel sounds. Absent: distended, tenderness, guarding, rebound, rigid Neurological exam: Present: alert, oriented X3, CN II-XII intact Psychiatric exam: Present: normal affect, normal mood Skin exam: Present: warm, dry, intact, normal color. Absent: rash Course Vital Signs 05/24/19 17:17 Temperature 98.1 F Pulse Rate 81 Respiratory 16 Rate Blood Pressure 156/118 O2 Sat by Pulse 98 Oximetry Medical Decision Making - Medical Decision Making 34 year-old female patient presents to the emergency department today for evalua tion of nausea and vomiting. Physical examination reveals a soft nontender abdomen. Labs reviewed and are unremarkable. X-ray negative. Patient is given IV fluids and nausea medication, shows report improvement of symptoms. She'll be discharged with prescription for Reglan. She is instructed to follow-up with her primary care physician and GI specialty. Return parameters were discussed in detail. She verbalizes understanding and agrees with this plan. - Lab Data Result diagrams: 05/24/19 18:36 05/24/19 18:36 Lab Results 05/24/19 05/24/19 05/24/19 Range/Units 18:36 18:36 18:36 WBC 7.6 (3.8-10.6) k/uL RBC 4.41 (3.80-5.40) m/uL Hgb 13.0 (11.4-16.0) gm/dL Hct 39.9 (34.0-46.0) % MCV 90.5 (80.0-100.0) fL MCH 29.5 (25.0-35.0) pg MCHC 32.6 (31.0-37.0) g/dL RDW 12.1 (11.5-15.5) % Plt Count 214 (150-450) k/uL Neutrophils % 63 % Lymphocytes % 28 % Monocytes % 4 % Eosinophils % 4 % Basophils % 1 % Neutrophils # 4.7 (1.3-7.7) k/uL Lymphocytes # 2.1 (1.0-4.8) k/uL Monocytes # 0.3 (0-1.0) k/uL Eosinophils # 0.3 (0-0.7) k/uL Basophils # 0.1 (0-0.2) k/uL Sodium 139 (137-145) mmol/L Potassium 4.0 (3.5-5.1) mmol/L Chloride 104 (98-107) mmol/L Carbon Dioxide 27 (22-30) mmol/L Anion Gap 8 mmol/L BUN 15 (7-17) mg/dL Creatinine 0.77 (0.52-1.04) mg/dL Est GFR (CKD-EPI)AfAm >90 (>60 ml/min/1.73 sqM) Est GFR (CKD-EPI)NonAf >90 (>60 ml/min/1.73 sqM) Glucose 93 (74-99) mg/dL Calcium 9.6 (8.4-10.2) mg/dL Total Bilirubin 0.6 (0.2-1.3) mg/dL AST 28 (14-36) U/L ALT 19 (4-34) U/L Alkaline Phosphatase 71 (38-126) U/L Total Protein 7.5 (6.3-8.2) g/dL Albumin 4.4 (3.5-5.0) g/dL Lipase 79 (23-300) U/L Urine Color Yellow Urine Appearance Clear (Clear) Urine pH 6.5 (5.0-8.0) Ur Specific Concrete 1.025 (1.001-1.035) Urine Protein Trace H (Negative) Urine Glucose (UA) Negative (Negative) Urine Ketones Negative (Negative) Urine Blood Negative (Negative) Urine Nitrite Negative (Negative) Urine Bilirubin Negative (Negative) Urine Urobilinogen <2.0 (<2.0) mg/dL Ur Leukocyte Esterase Trace H (Negative) Urine RBC 2 (0-5) /hpf Urine WBC 4 (0-5) /hpf Ur Squamous Epith Cells 5 H (0-4) /hpf Hyaline Casts 1 (0-2) /lpf Urine Mucus Rare H (None) /hpf - Radiology Data Radiology results: report reviewed, image reviewed 2 views of the abdomen are obtained. Report reviewed in its entirety. Impression by Dr. Benavides shows nonacute abdomen. No change. Disposition Clinical Impression: Nausea & vomiting Disposition: HOME SELF-CARE Condition: Good Instructions (If sedation given, give patient instructions): Acute Nausea and Vomiting (ED) Additional Instructions: Take medication as directed. Follow-up with your primary care physician for recheck in 1-2 days. Discuss referral to GI specialist. Return to the emergency department immediately for any new, worsening, or concerning symptoms. Prescriptions: Metoclopramide [Reglan] 10 mg PO Q8H PRN #30 tab PRN Reason: Vomiting Is patient prescribed a controlled substance at d/c from ED?: No Referrals: Lashell Ron MD [Primary Care Provider] - 1-2 days Brady Welsh MD [STAFF PHYSICIAN] - 1-2 days Time of Disposition: 19:13
[2019-05-24 18:52] LABS: Basophils # (A) 0.1 k/uL (0-0.2); Basophils % (A) 1 %; Eosinophils # (A) 0.3 k/uL (0-0.7); Eosinophils % (A) 4 %; HCT 39.9 % (34.0-46.0); Lymphocytes # (A) 2.1 k/uL (1.0-4.8); Lymphocytes % (A) 28 %; MCH 29.5 pg (25.0-35.0); MCHC 32.6 g/dL (31.0-37.0); MCV 90.5 fL (80.0-100.0); Mean Platelet Volume 8.2; Monocytes # (A) 0.3 k/uL (0-1.0); Monocytes % (A) 4 %; Neutrophils # (A) 4.7 k/uL (1.3-7.7); Neutrophils % (A) 63 %; Platelet Count 214 k/uL (150-450); RBC 4.41 m/uL (3.80-5.40); RDW 12.1 % (11.5-15.5); WBC 7.6 k/uL (3.8-10.6)
[2019-05-24 19:01] LABS: ALT 19 U/L (4-34); AST 28 U/L (14-36); African American GFR (CKD) >90 (>60 ml/min/1.73 sqM); Albumin 4.4 g/dL (3.5-5.0); Alkaline Phosphatase 71 U/L (38-126); Anion Gap 8 mmol/L; Blood Urea Nitrogen 15 mg/dL (7-17); Calcium 9.6 mg/dL (8.4-10.2); Carbon Dioxide 27 mmol/L (22-30); Chloride 104 mmol/L (98-107); Glucose 93 mg/dL (74-99); Non-African American GFR(CKD) >90 (>60 ml/min/1.73 sqM); Sodium 139 mmol/L (137-145); Total Bilirubin 0.6 mg/dL (0.2-1.3); Total Protein 7.5 g/dL (6.3-8.2)
[2019-05-24 19:03] LABS: Appearance,Urine Clear (Clear); Bilirubin,Urine Negative (Negative); Blood,Urine Negative (Negative); Color,Urine Yellow; Glucose,Urine (UA) Negative (Negative); Hyaline Casts,Urine 1 /lpf (0-2); Ketones,Urine Negative (Negative); Leukocyte Esterase,Urine Trace (Negative); Mucus,Urine Rare /hpf; Nitrite,Urine Negative (Negative); PH, Urine 6.5 (5.0-8.0); Protein,Urine Trace (Negative); RBC,Urine 2 /hpf (0-5); Specific Gravity,Urine 1.025 (1.001-1.035); Squamous Epithelial Cell,Urine 5 /hpf (0-4); Urobilinogen,Urine <2.0 mg/dL (<2.0); WBC,Urine 4 /hpf (0-5)
--- NOTE | 2019-05-24 19:10 | XR ---
EXAMINATION TYPE: XR KUB DATE OF EXAM: 05/24/2019 COMPARISON: 04/23/2017 HISTORY: Abdominal pain TECHNIQUE: 2 views upright FINDINGS: There is no sign of intestinal obstruction or pneumoperitoneum. Fecal pattern is normal. Christal ng bases are clear. There are no pathologic calcifications over the kidneys. There are clips from tub al ligation. There are clips from cholecystectomy. IMPRESSION: Nonacute abdomen. No change.
[2019-05-24 20:00] VITALS: BP 139/79; PULSE 71; RESP 22; TEMP 98.4
== END 2019-05-24 20:00 | disposition home or self-care (01) ==
LOC: EC 16:55
DX: R11.2 Nausea with vomiting, unspecified (principal); I10 Essential (primary) hypertension; Z88.1 Allergy status to other antibiotic agents; Z88.2 Allergy status to sulfonamides; Z88.5 Allergy status to narcotic agent; Z79.899 Other long term (current) drug therapy; Z87.19 Personal history of other diseases of the digestive system; Z90.49 Acquired absence of other specified parts of digestive tract
CPT/HCPCS: 36415; 80053; 83690; 85025; 81001; 74018; 99284; 96374; 96375; 96361; J2405

== ENCOUNTER 2019-07-25 11:15 | Emergency (ER) | payer MEDICARE, OTHER ==
[2019-07-25] MEDS ORDERED: traMADol 50 MG STARTER PACK 3 TAB BTL PO STA (11:29)
[2019-07-25 11:31] VITALS: BP 164/117; PULSE 74; RESP 18; TEMP 98.3
--- NOTE | 2019-07-25 11:31 | ED ---
ENT HPI - General Chief complaint: Dental/Oral Stated complaint: Dental Pain Time Seen by Provider: 07/25/19 11:24 Source: patient, RN notes reviewed Mode of arrival: ambulatory Limitations: no limitations - History of Present Illness Initial comments: 34-year-old female presents emergency Department chief complaint of dental pain. Patient states she has a bad tooth has been for a while but states her last that she's had some increasing discomfort. Patient states she woke up swelling today. Patient denies any fevers, chills, difficult to swelling. Patient states that she took some Tylenol or Motrin yesterday. Patient offers no other complaints. - Related Data Home Medications Medication Instructions Recorded Confirmed Labetalol [Trandate] 200 mg PO BID 08/16/16 04/22/19 Atorvastatin [Lipitor] 10 mg PO HS 01/09/19 04/22/19 Loratadine [Claritin] 10 mg PO DAILY PRN 01/09/19 04/22/19 Hydrochlorothiazide [Hydrodiuril] 25 mg PO DAILY 04/21/19 04/22/19 Previous Rx's Medication Instructions Recorded Metoclopramide [Reglan] 10 mg PO Q8H PRN #30 tab 05/24/19 Ibuprofen [Motrin] 600 mg PO Q8HR PRN #20 tab 07/25/19 Penicillin V Potassium [Pen Vee K] 500 mg PO QID #40 tablet 07/25/19 Allergies Allergy/AdvReac Type Severity Reaction Status Date / Time cephalexin monohydrate Allergy Anaphylaxis Verified 05/24/19 17:19 [From Keflex] codeine Allergy Rash/Hives Verified 05/24/19 17:19 morphine Allergy Rash/Hives Verified 05/24/19 17:19 Sulfa (Sulfonamide Allergy Rash/Hives Verified 05/24/19 17:19 Antibiotics) Review of Systems ROS Statement: Those systems with pertinent positive or pertinent negative responses have been documented in the HPI. ROS Other: All systems not noted in ROS Statement are negative. Past Medical History Past Medical History: Asthma, GERD/Reflux, Hypertension Additional Past Medical History / Comment(s): HX: MIGRAINES. History of Any Multi-Drug Resistant Organisms: None Reported Past Surgical History: Section, Cholecystectomy, Hernia Repair, Tubal Ligation Additional Past Surgical History / Comment(s): D & C x2, c/s x 3. SEPTEMBER 2014 TUBAL LIGATION Past Anesthesia/Blood Transfusion Reactions: Postoperative Nausea & Vomiting (PONV) Past Psychological History: Bipolar, Depression Smoking Status: Never smoker Past Alcohol Use History: None Reported Past Drug Use History: None Reported - Past Family History Mother Family Medical History: Asthma, Hypertension Father Family Medical History: CVA/TIA, Myocardial Infarction ([place]) General Exam Limitations: no limitations General appearance: alert, in no apparent distress Head exam: Present: atraumatic, normocephalic, normal inspection Eye exam: Present: normal appearance, PERRL, EOMI. Absent: scleral icterus, conjunctival injection, periorbital swelling ENT exam: Present: mucous membranes moist, TM's normal bilaterally, normal external ear exam. Absent: normal oropharynx (Mild right mandibular swelling, mild to moderate tenderness there is a dental fracture dental caries noted right lower no drainable abscess) Neck exam: Present: normal inspection, full ROM. Absent: tenderness, meningismus, lymphadenopathy Respiratory exam: Present: normal lung sounds bilaterally. Absent: respiratory distress, wheezes, rales, rhonchi, stridor Cardiovascular Exam: Present: regular rate, normal rhythm, normal heart sounds. Absent: systolic murmur, diastolic murmur, rubs, gallop, clicks Course Vital Signs 07/25/19 11:23 Temperature 98.3 F Pulse Rate 74 Respiratory 18 Rate Blood Pressure 164/117 O2 Sat by Pulse 97 Oximetry Medical Decision Making - Medical Decision Making 34-year-old female presented for abdominal pain. She has Dental infection, probable early dental abscess will be started on antibiotics. She will have recheck with her dentist tomorrow. She was informed that she does have mild hypertension she states that she's had this in the past with follow-up. Disposition Clinical Impression: Fracture of tooth, Dental infection Disposition: HOME SELF-CARE Condition: Stable Instructions (If sedation given, give patient instructions): Dental Abscess (ED) Additional Instructions: Please return to the Emergency Department if symptoms worsen or any other concerns. Prescriptions: Ibuprofen [Motrin] 600 mg PO Q8HR PRN #20 tab PRN Reason: Pain Penicillin V Potassium [Pen Vee K] 500 mg PO QID #40 tablet Is patient prescribed a controlled substance at d/c from ED?: No Referrals: Lashell Ron MD [Primary Care Provider] - 1-2 days Time of Disposition: :30
== END 2019-07-25 11:38 | disposition home or self-care (01) ==
LOC: EC 11:15
DX: K04.7 Periapical abscess without sinus (principal); S02.5XXA Fracture of tooth (traumatic), initial encounter for closed fracture; K02.9 Dental caries, unspecified; I10 Essential (primary) hypertension; Z88.1 Allergy status to other antibiotic agents; Z88.2 Allergy status to sulfonamides; Z88.5 Allergy status to narcotic agent; Z79.899 Other long term (current) drug therapy; Z82.49 Family history of ischemic heart disease and other diseases of the circulatory system; X58.XXXA Exposure to other specified factors, initial encounter
CPT/HCPCS: 99282

== ENCOUNTER 2020-07-06 08:06 | Emergency (ER) | payer MEDICARE, OTHER ==
[2020-07-06 08:09] VITALS: PULSE 72; RESP 16; TEMP 98.7
[2020-07-06 08:25] VITALS: BP 146/109
[2020-07-06] MEDS ORDERED: CLINDAMYCIN 150 MG CAP PO STA (08:26)
--- NOTE | 2020-07-06 08:28 | ED ---
General Adult HPI - General Chief complaint: Dental/Oral Stated complaint: tooth Abcess Time Seen by Provider: 07/06/20 08:11 Source: patient Mode of arrival: ambulatory Limitations: no limitations - History of Present Illness Initial comments: 35-year-old female with a past medical history of asthma, GERD, hypertension presents to the emergency room for a chief complaint of dental pain. Patient reports that she has had a dental infection for about a week now. Patient reports that she went to urgent care and was started on minocycline and is on da y 7 of this and it does not seem to be helping. States she has not followed up with a dentist because when she went to [facility] they told her she needed to see an oral surgeon. Patient reports it would've been $1400 out of pocket which she cannot afford. Patient denies any trismus or sublingual edema. Denies any difficulty swallowing or swelling in the neck. No neck pain or fevers.Patient has no other complaints at this time including shortness of breath, chest pain, abdominal pain, nausea or vomiting, headache, or visual changes. - Related Data Home Medications Medication Instructions Recorded Confirmed Labetalol [Trandate] 200 mg PO BID 08/16/16 04/22/19 Atorvastatin [Lipitor] 10 mg PO HS 01/09/19 04/22/19 Loratadine [Claritin] 10 mg PO DAILY PRN 01/09/19 04/22/19 hydroCHLOROthiazide [Hydrodiuril] 25 mg PO DAILY 04/21/19 04/22/19 Previous Rx's Medication Instructions Recorded Metoclopramide [Reglan] 10 mg PO Q8H PRN #30 tab 05/24/19 Ibuprofen [Motrin] 600 mg PO Q8HR PRN #20 tab 07/25/19 Penicillin V Potassium [Pen Vee K] 500 mg PO QID #40 tablet 07/25/19 Clindamycin [Cleocin] 450 mg PO Q8H 7 Days #63 cap 07/06/20 Allergies Allergy/AdvReac Type Severity Reaction Status Date / Time cephalexin monohydrate Allergy Anaphylaxis Verified 05/24/19 17:19 [From Keflex] codeine Allergy Rash/Hives Verified 05/24/19 17:19 morphine Allergy Rash/Hives Verified 05/24/19 17:19 Sulfa (Sulfonamide Allergy Rash/Hives Verified 05/24/19 17:19 Antibiotics) Review of Systems ROS Statement: Those systems with pertinent positive or pertinent negative responses have been documented in the HPI. ROS Other: All systems not noted in ROS Statement are negative. Past Medical History Past Medical History: Asthma, GERD/Reflux, Hypertension Additional Past Medical History / Comment(s): HX: MIGRAINES. History of Any Multi-Drug Resistant Organisms: None Reported Past Surgical History: Section, Cholecystectomy, Hernia Repair, Tubal Ligation Additional Past Surgical History / Comment(s): D & C x2, c/s x 3. SEPTEMBER 2014 TUBAL LIGATION Past Anesthesia/Blood Transfusion Reactions: Postoperative Nausea & Vomiting (PONV) Past Psychological History: Bipolar, Depression Smoking Status: Never smoker Past Alcohol Use History: None Reported Past Drug Use History: None Reported - Past Family History Mother Family Medical History: Asthma, Hypertension Father Family Medical History: CVA/TIA, Myocardial Infarction ([place]) General Exam Limitations: no limitations General appearance: alert Head exam: Present: atraumatic Eye exam: Present: normal appearance, PERRL, EOMI. Absent: scleral icterus, conjunctival injection ENT exam: Present: normal exam, mucous membranes moist. Absent: normal oropharynx (Patient has a large cavity and fracture to tooth 30. There is no identifiable abscess with palpation or direct visualization. No sublingual edema. No facial edema. No trismus. Patient able to swallow.) Neck exam: Present: normal inspection, full ROM. Absent: tenderness Respiratory exam: Present: normal lung sounds bilaterally. Absent: respiratory distress, wheezes Cardiovascular Exam: Present: regular rate, normal rhythm, normal heart sounds GI/Abdominal exam: Present: soft, normal bowel sounds. Absent: distended, tenderness Neurological exam: Present: alert Course Vital Signs 07/06/20 07/06/20 08:07 08:25 Temperature 98.7 F Pulse Rate 72 Respiratory 16 Rate Blood Pressure 150/121 146/109 O2 Sat by Pulse 98 Oximetry Medical Decision Making - Medical Decision Making Vitals are stable. She is hypertensive. She has a history of this. Patient is supposed to take 200 mg of labetalol in the morning. I did offer to give her this here however she did not want to take as she did not eat breakfast. States she will take it as soon as she gets home any breakfast. Patient does have a large cavity noted. She was on minocycline therefore changed to penicillin. I did give her [facility] phone number. She is appreciative of this and is agreeable to driving down to try as they may be able to help her. She will return here for any worsening symptoms. Disposition Clinical Impression: Pain, dental Disposition: HOME SELF-CARE Condition: Good Instructions (If sedation given, give patient instructions): Toothache (ED) Additional Instructions: Please take antibiotic as directed. You were given clindamycin because of your ALLERGY to cephalosporins. This was sent to your pharmacy. Take your blood pressure medication as soon as you get home. Alternate Motrin and Tylenol for pain. Please follow-up with the dentist as soon as possible. If you develop any worsening symptoms such as fevers, inability to open your mouth, significant swelling return to the emergency room. [facility] Have to pay $50 for Xrays and rest is covered [phone] Prescriptions: Clindamycin [Cleocin] 450 mg PO Q8H 7 Days #63 cap Is patient prescribed a controlled substance at d/c from ED?: No Referrals: Lashell Ron MD [Primary Care Provider] - 1-2 days Time of Disposition: 08:26
== END 2020-07-06 08:42 | disposition home or self-care (01) ==
LOC: EC 08:06
DX: K02.9 Dental caries, unspecified (principal); I10 Essential (primary) hypertension; Z88.1 Allergy status to other antibiotic agents; Z88.5 Allergy status to narcotic agent; Z88.2 Allergy status to sulfonamides; F31.9 Bipolar disorder, unspecified; Z79.899 Other long term (current) drug therapy; Z90.49 Acquired absence of other specified parts of digestive tract
CPT/HCPCS: 99283

== ENCOUNTER → 2021-09-12 | Outpatient (CLI) | payer MEDICARE, OTHER ==
--- NOTE | 2021-09-12 11:47 | XR ---
Most echo spine HISTORY: Low back pain 5 views lumbosacral spine correlated prior exam 09/05/2016 There is a slight spinal curvature as on prior exam. Lumbar vertebral bodies show preserved height an d bone mineralization. There is no evident spondylolysis or spondylolisthesis. Multilevel spondylosis is present. Some loss of disc height is present at L3-4. Sclerosis is present in the posterior eleme nts of the lower lumbar spine. IMPRESSION: Degenerative disc disease, facet arthropathy. Mild spinal curvature.
== END | disposition home or self-care (01) ==
LOC: RADXRMAIN 10:36
PROVIDERS: ATTEND Family Medicine
DX: M51.36 Other intervertebral disc degeneration, lumbar region (principal); M47.816 Spondylosis without myelopathy or radiculopathy, lumbar region; M43.8X6 Other specified deforming dorsopathies, lumbar region
CPT/HCPCS: 72110

== ENCOUNTER → 2022-11-04 | Outpatient (CLI) | payer MEDICARE, OTHER ==
--- NOTE | 2022-11-04 12:46 | MR ---
EXAMINATION TYPE: MR lumbar spine wo con DATE OF EXAM: 11/04/2022 12:07 PM COMPARISON: 09/12/2021. CLINICAL INDICATION: 37 years old with history of M54.41; M51.9; G8929; TECHNIQUE: Multi planar, multi sequence imaging was performed utilizing: T1-weighted, T2-weighted, a nd turbo inversion recovery imaging of the lumbar spine. IV Contrast: None. FINDINGS: Alignment: The lumbar vertebral bodies have preserved heights and alignment. Cord: The conus medullaris and the distal spinal cord appear unremarkable with regards to their signa l intensity and morphology. Bones/Discs: Scattered Modic endplate changes are seen throughout the spine. Reactive bony edema invo lving the L4-L5 adjoining endplates. Multilevel disc desiccation is present. T12-L1: No evidence of significant spinal canal stenosis or neural foraminal stenosis. L1-L2: No evidence of significant spinal canal stenosis or neural foraminal stenosis. L2-L3: Disc bulge and facet joint arthropathy without significant spinal canal stenosis and mild bila teral neural foraminal stenosis. L3-L4: Disc bulge and facet joint arthropathy without significant spinal canal stenosis and mild bila teral neural foraminal stenosis. L4-L5: Disc bulge and facet joint arthropathy without significant spinal canal stenosis and mild bila teral neural foraminal stenosis. L5-S1: The disc is rounded posterior morphology without significant spinal canal stenosis. Facet join t arthropathy with mild neural foraminal stenosis. No significant spinal canal or neural foraminal stenosis in the remainder of the visualized levels. Other findings: None. IMPRESSION: 1. No definitive evidence of disc herniation or significant spinal canal stenosis. 2. Mild disc degeneration with associated osteoarthritic changes worse at L4-L5 adjoining endplates of reactive bony edema of the adjoining endplates. 3. Diffuse red marrow conversion can be seen in the setting of tobacco abuse, anemia, or myeloprolife rative disorder.
== END | disposition home or self-care (01) ==
LOC: RADMRIMAIN 11:21
PROVIDERS: ATTEND Family Medicine
DX: M51.16 Intervertebral disc disorders with radiculopathy, lumbar region (principal); M47.26 Other spondylosis with radiculopathy, lumbar region; M51.9 Unspecified thoracic, thoracolumbar and lumbosacral intervertebral disc disorder; G89.29 Other chronic pain
CPT/HCPCS: 72148